=== PATIENT | female | born 1975 | race African-American/Black ===

== ENCOUNTER 2018-11-06 10:42 | Emergency (ER) | payer BC | END 2018-11-06 12:33 | disposition home or self-care (01) | LOC: FER 10:42 ==

== ENCOUNTER 2019-11-13 15:51 | Emergency (ER) | payer BC ==
--- NOTE | 2019-11-13 16:06 | PDOC ---
History of Present Illness - General Chief Complaint: Pain Stated Complaint: LOWER BACK PAIN TO RIGHT LEG 2 WEEKS Time Seen by Provider: 11/13/19 15:56 History Source: Patient Exam Limitations: No Limitations - History of Present Illness Initial Comments: 11/13/19 16:06 44-year-old female, with hx of chronic neck pain and lower back pain with sciatica, lumbar disc herniations, carpal tunnel, presenting with acute on chronic lower back pain x 2 weeks. denies trauma or strenous activity. pt states she has right buttock/lower back pain with associated sharp shooting pains going down her RLE. She is on gabapentin and percocet at home, ran out of percocet x several weeks and made a new appointment with new pain specialist physician for 12/05/19 in [place]. no focal weakness, numbness or tingling. no bowel or bladder incontinence or retention. she has been stressed lately with the recent of her 61 y/o mother and had not been able to care for herself she has tried her home gabapentin and tizanidine, without relief she went to urgent care 1 week ago, dx'd with sciatica and chronic back pain, told to take ibuprofen, which has not been working either PMH: chronic neck and back pain, carpal tunnel PSH: carpal tunnel release, myomectomy Social: lives with , +tobacco and etoh use occasionally; prior cocaine use meds: gabapentin Past History - Medical History Allergies/Adverse Reactions: Allergies Allergy/AdvReac Type Severity Reaction Status Date / Time No Known Allergies Allergy Verified 11/13/19 15:54 Home Medications: Ambulatory Orders Gabapentin 300 mg PO BID 11/13/19 Lidocaine 5% Patch [Lidoderm Patch -] 1 patch TP DAILY PRN #7 patch 11/13/19 Oxycodone HCl/Acetaminophen [Percocet 10-325 mg Tablet] 1 each PO BID 11/13/19 Oxycodone HCl/Acetaminophen [Percocet 5-325 mg Tablet] 1 tab PO Q6H PRN #12 tablet MDD 4 11/13/19 Anemia: No Asthma: No Cancer: No Cardiac Disorders: No CVA: No COPD: No CHF: No Dementia: No Diabetes: No GI Disorders: No Disorders: No HTN: Yes Hypercholesterolemia: No Kidney Stones: No Liver Disease: No Seizures: No Thyroid Disease: No Other medical history: PINCHED NERVES TO CERVICAL SPINE - Surgical History Abdominal Surgery: Yes (LAP BAND) Appendectomy: No Cardiac Surgery: No Cholecystectomy: No Lung Surgery: No Neurologic Surgery: No Orthopedic Surgery: No - Reproductive History PID: No - Psycho-Social/Smoking History Smoking Status: Yes Smoking History: Current every day smoker Years of Tobacco Use: 20 Have you smoked in the past 12 months: Yes Number of Cigarettes Smoked Daily: 10 Cigars Per Day: 0 Information on smoking cessation initiated: Yes 'Breaking Loose' booklet given: 11/06/18 - Substance Abuse Hx (Audit-C & DAST Scrn) How often the patient has a drink containing alcohol: 2-3 times / week Number of drinks the patient has on a typical day: 1 or 2 How often the patient has six or more drinks on one occasion: Less than monthly Score: In Men: 4 or > Positive; In Women: 3 or > Positive: 4 Screen Result (Pos requires Nsg. Audit-10AR): Positive In the last yr the pt used illegal drug/Rx for NonMed reason: No Score: Yes response is considered Positive: 0 Screen Result (Positive result requires Nsg. DAST-10): Negative Trauma Specific PMHX - Complaint Specific PMHX Arthritis: No Review of Systems - Review of Systems Able to Perform ROS?: Yes Comments:: 11/13/19 16:22 Review of Systems Constitutional: no fevers or chills. Abdomen: no abdominal pain, vomiting or diarrhea. Genitorurinary: no urinary retention or incontinence, no dysuria, urgency or frequency. no hematuria MUSCULOSKELETAL: No joint pain and swelling. No muscle pain/arthralgias. Back: + back pain SKIN: no redness or skin changes, no discharge, no rash. No wounds. NEUROLOGIC: No weakness, numbness or tingling. Allergic/Immunologic: no allergies All other systems reviewed and negative, or as documented in HPI. *Physical Exam - Vital Signs Last Vital Signs Temp Pulse Resp BP Pulse Ox 98.3 F 85 16 152/90 99 11/13/19 15:53 11/13/19 15:53 11/13/19 15:53 11/13/19 15:53 11/13/19 15:53 - Physical Exam 11/13/19 16:22 physical exam General: NAD, well appearing HEENT: NCAT, EOMI, PERRL. airway patent Resp: no distress, speaking full sentences. Abdomen: soft, no tenderness, nondistended Vascular: 2+ DP pulses symmetric and equal. Back: no midline tenderness, no stepoffs, ROM limited 2/2 pain. +right buttock and paralumbar TTP. MSK: Lower Extremity: soft compartment. no calf tenderness. 5/5 plantar and kelly siflexion. SILT. no laxity at knee jt. 2+ DP pulses bilaterally. +SLR in the RLE Neuro: alert, no focal neurologic deficits, 2+ patellar reflexes Skin: color normal color, warm and well perfused. Cap refill <2 sec. Medical Decision Making - Medical Decision Making 11/13/19 16:22 Vital Signs Temp Pulse Resp BP Pulse Ox 98.3 F 85 16 152/90 99 11/13/19 15:53 11/13/19 15:53 11/13/19 15:53 11/13/19 15:53 11/13/19 15:53 Back pain x 2 weeks vital signs reviewed within normal limits, Neurologically intact, no evidence to suggest cauda equina or spinal cord pathology, neurologically intact, there is positive straight leg raise on the right lower extremity to correlate with sciatica Reflexes are intact, no midline back symptoms, more paraspinal in the lumbar/buttock region on the right no trauma no red flag sx such as age >50, IC state, fever, recent procedures/spinal injections or urinary retention/urinary/bowel incontinence We will trial analgesia including Toradol, Lidoderm patch as well as Percocet which she has previously taken. She has ran out and pending her pain specialist appointment, will Rx percocet maximum 3 days dose to help with severe symptoms. Encourage patient to follow-up with her pain specialist as well as to try range of motion exercises, conservative management and [id number] Motrin as needed for symptoms. Lidoderm patch as well as her home gabapentin and tizanidine. side effect profile discussed avoid triggers rest and activity as tolerated PCP and pain specialist followup recommended. 11/13/19 16:48 11/13/19 16:49 Discharge - Discharge Information Problems reviewed: Yes Clinical Impression/Diagnosis: Right buttock pain, Lumbar back pain with radiculopathy affecting right lower extremity Condition: Stable Disposition: HOME - Admission No - Additional Discharge Information Prescriptions: Lidocaine 5% Patch [Lidoderm Patch -] 1 patch TP DAILY PRN #7 patch PRN Reason: Pain Oxycodone HCl/Acetaminophen [Percocet 5-325 mg Tablet] 1 tab PO Q6H PRN #12 tablet MDD 4 PRN Reason: Severe Pain - Follow up/Referral Referrals: Joyce Fermin MD [Primary Care Provider] - - Patient Discharge Instructions Patient Printed Discharge Instructions: Acupuncture for Low Back Pain, DI for Back Pain With Sciatica, Activity May Be Better then Rest for Low Back Pain Recovery Additional Instructions: You most likely have musculoskeletal strain/sciatica of your lower back Avoid heavy lifting or strenuous activity to minimize further injury This should heal over the next 3-5 days. RICE rest ice elevate the affected area Rest, Ice (20 minutes at a time, 3 times a day), Compression (DANNY wrap or splint), Elevation (above the heart). Apply ice to the area for 10 minutes every 2 hours for the first 2 days after the injury to reduce swelling. continue with range of motion exercises, as this will facilitate the healing process; avoid being bed bound and immobile. If you have any worsening of symptoms, including severe pain/swelling/re dness/numbness/changes in sensation/weakness/paralysis or any other concerns please return to the Emergency Department immediately. You were given a copy of the results from any tests performed today in the Emergency Department which have results available. Show these to your doctor(s). Some of the tests we sent may not have results yet so please call or have your doctor call the Emergency Department to follow up on all results. Please continue taking your home medications as directed. Do not use alcohol when taking any medication (especially antibiotics, tylenol or other pain medication) unless you check with the doctor or pharmacist. -topical lidoderm patch to the area affected, 12 hours on and 12 hours off.. -May take ibuprofen 400-600mg every 6 hours as needed for mild to moderate pain, available over the counter. - Percocet 2 tab every 6 hours as needed for severe pain, this can cause constipation so stay hydrated and eat high fiber diet. it can cause drowsiness/sleepiness, do not drive or operate machinery do not take additional tylenol with this medication as percocet contains oxycodone and tylenol combination. Please follow up with your primary doctor(s) and your new pain specialist within the next 1 week, but seek medical care sooner if your symptoms persist or worsen. Please call as soon as possible for an appointment. If you cannot follow up with your doctor please return to the Emergency Department for any urgent issues. Follow up with your primary care physician in 1 week if symptoms persist, or with orthopedics specialists if needed, referrals have been pr ovided. - Post Discharge Activity
[2019-11-13 16:12] VITALS: BP 152/90; PULSE 85; TEMP 98.3; BMI 32.8
[2019-11-13] MEDS ORDERED: LIDOCAINE 5% TOPICAL PATCH TP ONE (16:18)
[2019-11-13] MEDS ORDERED: KETOROLAC TROMETHAMINE 30 MG/1 ML VIAL IM ONE (16:18)
[2019-11-13] MEDS ORDERED: KETOROLAC TROMETHAMINE 30 MG/1 ML VIAL ONE (16:23)
[2019-11-13] MEDS ORDERED: LIDOCAINE 5% TOPICAL PATCH ONE (16:24)
== END 2019-11-13 16:56 | disposition home or self-care (01) ==
LOC: FER 15:51
PROC: 3E023GC Introduction of Other Therapeutic Substance into Muscle, Percutaneous Approach (ICD-10-PCS; principal; 2019-11-13)
DX: M54.16 Radiculopathy, lumbar region (principal)
CPT/HCPCS: 99284-25

== ENCOUNTER 2021-05-24 19:37 | Emergency (ER) | payer BC ==
[2021-05-24 19:58] VITALS: BP 147/63; PULSE 90; TEMP 98.8; BMI 32.8
[2021-05-24] MEDS ORDERED: KETOROLAC TROMETHAMINE 60 MG/2 ML VIAL IM ONE (20:00)
[2021-05-24] MEDS ORDERED: KETOROLAC TROMETHAMINE 60 MG/2 ML VIAL ONE (20:01)
[2021-05-25 14:13] LABS: SARS-CoV-2 NAA Detected (Not Detected)
== END 2021-05-24 20:17 | disposition home or self-care (01) ==
LOC: FER 19:37
PROC: 3E0233Z Introduction of Anti-inflammatory into Muscle, Percutaneous Approach (ICD-10-PCS; principal; 2021-05-24)
DX: U07.1 COVID-19 (principal); R51.9 Headache, unspecified; M79.10 Myalgia, unspecified site
CPT/HCPCS: 99284-25; C9803; U0003; U0005

== ENCOUNTER 2022-12-28 19:21 | Emergency (ER) | payer BC ==
[2022-12-28 19:37] VITALS: BP 143/91; PULSE 100; RESP 18; TEMP 99.8; BMI 38.7
[2022-12-28] MEDS ORDERED: diphenhydrAMINE HCL 25 MG CAPSULE (FP) PO ONE (19:49)
[2022-12-28] MEDS ORDERED: LORATADINE 10 MG TABLET PO ONE (19:50)
[2022-12-28] MEDS ORDERED: LORATADINE 10 MG TABLET ONE (19:50)
[2022-12-28 19:57] LABS: HEMOGLOBIN 14.8 G/dL (10.7-15.3); MCH 35.7 pg (25.7-33.7); MCHC 34.4 g/dl (32.0-36.0); MEAN CELL VOLUME 103.8 fl (80-96); MEAN PLT VOLUME 7.7 fl (7.5-11.1); PLATELET COUNT 267.9 10^3/uL (134-434); RBC 4.14 10^6/uL (3.60-5.2); RDW 13.8 % (11.6-15.6); WHITE BLOOD COUNT 6.1 10^3/uL (4.0-10.8)
[2022-12-28 20:13] LABS: ALBUMIN 4.5 g/dl (3.4-5.0); BILIRUBIN,TOTAL 0.6 mg/dl (0.2-1); BLOOD UREA NITROGEN 12.6 mg/dl (7-18); CALCIUM 9.7 mg/dl (8.5-10.1); CREATININE 0.8 mg/dl (0.6-1.3); POTASSIUM 3.6 mmol/L (3.5-5.1); SGOT/AST 21.8 U/L (15-37); SGPT/ALT 18.4 U/L (7-52); TOT PROT 7.6 g/dl (6.4-8.2)
[2022-12-28] MEDS ORDERED: predniSONE 20 MG TABLET (UD) PO ONE (20:36)
[2022-12-28] MEDS ORDERED: predniSONE 20 MG TABLET (UD) ONE (20:37)
== END 2022-12-28 20:43 | disposition home or self-care (01) ==
LOC: FER 19:21
DX: L29.9 Pruritus, unspecified (principal); L50.9 Urticaria, unspecified; L65.9 Nonscarring hair loss, unspecified; G89.29 Other chronic pain; R43.8 Other disturbances of smell and taste
CPT/HCPCS: 36415; 80053; 85027; 99283-25